=== PATIENT | male | born 1975 | race Caucasian/White ===

== ENCOUNTER 2022-02-06 22:09 | Emergency (ER) | payer SELFPAY ==
[~2022-02-06] VITALS: Ht 162.6 cm; Wt 70.3 kg
--- NOTE | 2022-02-06 22:15 | NUR ---
DR MATHEWS IN ROOM EXAMINING PATIENT.
--- NOTE | 2022-02-06 22:19 | NUR ---
Patient to ER bed 05 to gown for evaluation. Side rails up.
[2022-02-06 22:20] VITALS: BP_SYST 134
[2022-02-06 22:52] LABS: BILIRUBIN,URINE NEGATIVE (NEGATIVE); BLOOD, URINE 1+ (NEGATIVE); CLARITY/URINE CLEAR (CLEAR); COLOR,URINE YELLOW (YELLOW); GLUCOSE,URINE NEGATIVE (NEGATIVE); KETONES,URINE NEGATIVE (NEGATIVE); LEUKOCYTE ESTERASE ,URINE NEGATIVE (NEGATIVE); NITRITE, URINE NEGATIVE (NEGATIVE); PROTEIN URINE 1+ (NEGATIVE); UROBILINOGEN,URINE 0.2 (0.2-1.0)
[2022-02-06] MEDS ORDERED: FOLIC ACID 5 MG/ML VIAL IV ONE (23:00)
[2022-02-06] MEDS ORDERED: NACL 0.9% 1,000 ML IV ONE (23:00)
[2022-02-06] MEDS ORDERED: THIAMINE HCL 100 MG in NS 50 ML IV ONE (23:00)
[2022-02-06] MEDS ORDERED: MAGNESIUM SULFATE 50 ML IV ONE (23:00)
[2022-02-06 23:04] LABS: HEMATOCRIT 41.4 % (36-54)
[2022-02-06 23:08] LABS: BACTERIA,URINE FEW /HPF (None Seen); RBC,URINE 0-3 /HPF (0-3); WBC,URINE 0-3 /HPF (0-3)
[2022-02-06] MEDS ORDERED: THIAMINE HCL 100 MG/ML VIAL ONE (23:11)
[2022-02-06 23:12] LABS: BASOPHILS # (AUTO) 0.1 K/uL (0.0-0.2); BASOPHILS % (AUTO) 1.3 % (0.0-2.0); EOSINOPHILS % (AUTO) 0.1 % (0.0-4.0); HEMOGLOBIN 14.3 g/dL (14.0-18.0); LYMPHOCYTES # (AUTO) 1.4 K/uL (1.0-5.5); LYMPHOCYTES % (AUTO) 27.2 % (20.5-51.5); MEAN CORPUSCULAR HEMOGLOBIN 32 pg (27-31); MEAN CORPUSCULAR HGB CONC 35 % (32-36); MEAN CORPUSCULAR VOLUME 93 fL (79.0-98.0); MONOCYTES # (AUTO) 0.5 K/uL (0.0-1.0); MONOCYTES % (AUTO) 8.9 % (1.7-9.3); NEUTROPHILS # (AUTO) 3.2 K/uL (1.8-7.7); NEUTROPHILS % (AUTO) 62.5 % (40.0-70.0); PLATELET COUNT (AUTO) 170 K/uL (130-430); RED BLOOD CELL COUNT(AUTO) 4.44 MIL/uL (4.2-6.2); RED CELL DISTRIBUTION WIDTH 14.5 % (9.0-15.0); WHITE BLOOD COUNT (AUTO) 5.2 K/uL (4.8-10.8)
[2022-02-06] MEDS ORDERED: MAGNESIUM SULFATE 1 GM/2 ML VIAL IVP ONE (23:15)
[2022-02-06 23:16] LABS: CALCIUM 7.8 mg/dL (8.4-11.0); CREATININE 0.86 mg/dL (0.55-1.30); POTASSIUM 3.7 mmol/L (3.5-5.1)
[2022-02-06 23:24] LABS: ALBUMIN 3.8 g/dL (3.4-4.8); TOTAL BILIRUBIN 1.1 mg/dL (0.0-1.0)
--- NOTE | 2022-02-06 23:54 | NUR ---
2220 CONNECTED TO BEDSIDE MONITOR,VS TAKEN AND RECORDED.
--- NOTE | 2022-02-06 23:55 | NUR ---
2230 IV ACCESS PLACED G20 AT RT WRIST IVF RUNNING WITH BANANA BAG ORDERED.
--- NOTE | 2022-02-07 03:25 | NUR ---
REVIEWED BY DR MATHEWS TO KEEP HIM TILL MORNING TO REST
--- NOTE | 2022-02-07 05:00 | NUR ---
ACCIDENTALLY PULLED OUT IV DRESSING PLACED.
[2022-02-07] MEDS ORDERED: ONDANSETRON HCL 4 MG/2 ML VIAL IVP ONE (05:45)
[2022-02-07] MEDS ORDERED: ONDA-8 TL (06:25)
[2022-02-07 06:45] VITALS: BP_SYST 135
--- NOTE | 2022-02-07 06:45 | NUR ---
Patient given written and verbal discharge instructions and verbalizes understanding. ER MD discussed with patient the results and treatment provided. Patient in stable condition. ID arm band removed. IV catheter removed intact and dressing applied, no active bleeding. no Rx of given. Patient educated on pain management and to follow up with PMD. Pain Scale 0/10. Opportunity for questions provided and answered. Medication side effect fact sheet provided.
--- NOTE | 2022-02-11 18:15 | NUR ---
ADDEDUM: START THIAMINE 0133 STOP 0010
== END 2022-02-07 06:45 | disposition home or self-care (01) ==
LOC: SED 22:09
DX: F10.129 Alcohol abuse with intoxication, unspecified (principal); Z79.899 Other long term (current) drug therapy; Y90.6 Blood alcohol level of 120-199 mg/100 ml
CPT/HCPCS: 36415; 70450; 76376; 80053; 81000; 85025; 93005; 96365; 96375 ×2; 99285; J2405; J3411; J3475; J3490; J7030; 96361; 96374